=== PATIENT | female | born 1995 | race Caucasian/White ===

== ENCOUNTER 2018-03-28 02:20 | Outpatient (CLI) | END 2018-03-28 05:25 | disposition home or self-care (01) ==

== ENCOUNTER 2018-04-15 20:54 | Outpatient (CLI) | END 2018-04-16 01:46 | disposition home or self-care (01) ==

== ENCOUNTER 2018-04-16 10:35 | Inpatient (IN) | END 2018-04-18 15:15 | disposition home or self-care (01) | DRG 775 ==